=== PATIENT | male | born 1965 | race Caucasian/White ===

== ENCOUNTER 2017-11-20 14:34 | Emergency (ER) | payer BC ==
[2017-11-20] MEDS ORDERED: NS 1,000 ML IV ONE ×2 (14:52→15:55)
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
[2017-11-20] MEDS ORDERED: KETOROLAC 30 MG/1 ML SDV IVP ONE (15:55)
[2017-11-20] MEDS ORDERED: IOPAMIDOL (ISOVUE-300) 100 ML BTL ONE (18:05)
[2017-11-20 18:29] LABS: PLATELET COUNT 171 10^3/uL (150-400)
[2017-11-20 18:37] LABS: INR 1.09 (0.83-1.16); PROTIME(PATIENT) 14.3 SEC (12.0-15.0)
[2017-11-20 19:36] VITALS: BP 139/85
== END 2017-11-20 19:38 | disposition home or self-care (01) ==
DX: S32.028A Other fracture of second lumbar vertebra, initial encounter for closed fracture (principal); S32.038A Other fracture of third lumbar vertebra, initial encounter for closed fracture; E86.9 Volume depletion, unspecified; V00-Y99 External causes of morbidity; Y92.89 Other specified places as the place of occurrence of the external cause; Y99.8 Other external cause status; Y93.55 Activity, bike riding
CPT/HCPCS: 82435-PO; 82565-PO; 82947-PO; 84132-PO; 84295-PO; 84520-PO; 85014-PO; 96374; J1885; Q9967